=== PATIENT | female | born 1960 | race Caucasian/White ===

== ENCOUNTER 2021-09-08 22:43 | Emergency (ER) | payer MEDICAID ==
[~2021-09-08] VITALS: Ht 149.9 cm; Wt 72.6 kg
[2021-09-09] VITALS: BP 146/71
[2021-09-09] MEDS ORDERED: FLUORESCEIN SODIUM OPHTH 1 EA STRIP ONE (00:19)
[2021-09-09] MEDS ORDERED: FLUORESCEIN SODIUM OPHTH 1 EA STRIP OP ONE (00:30)
[2021-09-09] MEDS ORDERED: TETRAcaine 5 ML BOTTLE RIGHTEYE ONE (00:30)
[2021-09-09] MEDS ORDERED: TOBR5DRO RIGHTEYE (00:32)
== END 2021-09-09 00:46 | disposition home or self-care (01) ==
LOC: ER 22:52
DX: S05.01XA Injury of conjunctiva and corneal abrasion without foreign body, right eye, initial encounter (principal); Z79.899 Other long term (current) drug therapy; X58.XXXA Exposure to other specified factors, initial encounter; Y93.G1 Activity, food preparation and clean up; Y92.89 Other specified places as the place of occurrence of the external cause; Y99.8 Other external cause status